=== PATIENT | female | born 1950 | race Caucasian/White ===

== ENCOUNTER 2021-07-31 11:15 | Outpatient (CLI) | payer MEDICARE ==
[2021-07-31 12:32] LABS: BASOPHILS # (AUTO) 0.1 X10'3 (0-0.2); BASOPHILS % (AUTO) 0.9 % (0-1); EOSINOPHILS # (AUTO) 0.3 X10'3 (0-0.9); EOSINOPHILS % (AUTO) 3.5 % (0-6); HEMATOCRIT 45.5 % (35.0-45.0); LYMPHOCYTES # (AUTO) 1.6 X10'3 (1.1-4.8); LYMPHOCYTES % (AUTO) 21.2 % (21-51); MEAN CORPUSCULAR HEMOGLOBIN 30.2 PG (27.0-31.0); MEAN CORPUSCULAR HGB CONC 33.1 g/dL (33.0-36.5); MEAN CORPUSCULAR VOLUME 91.2 FL (78-98); MEAN PLATELET VOLUME 7.5 FL (7.4-10.4); MONOCYTES # (AUTO) 0.8 X10'3 (0-0.9); MONOCYTES % (AUTO) 11.4 % (2-12); NEUTROPHILS # (AUTO) 4.7 X10'3 (1.8-7.7); PLATELET COUNT 232 X10'3 (140-440); RED BLOOD COUNT 4.98 X10'6 (4.20-5.60); WHITE BLOOD COUNT 7.5 X10'3 (4.5-11.0)
[2021-07-31 12:45] LABS: PARTIAL THROMBOPLASTIN TIME 29 SECONDS (22-32)
[2021-07-31 12:49] LABS: ALBUMIN 4.1 G/DL (3.4-5.0); ANION GAP 10 (8-16); BLOOD UREA NITROGEN 34 MG/DL (7-18); CALCIUM 9.6 MG/DL (8.5-10.1); CHLORIDE 106 MMOL/L (99-107); CREATININE 1.48 MG/DL (0.40-0.90); GLUCOSE 116 MG/DL (70-104); POTASSIUM 3.9 MMOL/L (3.5-5.1); SODIUM 142 MMOL/L (135-145); eGFR 35 ML/MIN
== END 2021-07-31 23:59 | disposition home or self-care (01) ==
LOC: LAB 11:15
PROVIDERS: ATTEND Internal Medicine Interventional Cardiology
DX: I10 Essential (primary) hypertension (principal); Z79.01 Long term (current) use of anticoagulants
CPT/HCPCS: 36415; 80048; 85025; 85610; 85730

== ENCOUNTER 2021-08-05 11:23 | Day surgery (SDC) | payer MEDICARE, BC ==
[~2021-08-05] VITALS: Ht 165.1 cm; Wt 79.7 kg
[2021-08-05] VITALS (8 sets, daily range): BP systolic 129–151; BP diastolic 70–82
[2021-08-05] MEDS ORDERED: TRIA1CAP6 PO (12:07)
[2021-08-05] MEDS ORDERED: SYN0.088T PO (12:07)
[2021-08-05] MEDS ORDERED: OMEG1CAP13 PO (12:07)
[2021-08-05] MEDS ORDERED: PRAV40TA3 PO (12:07)
[2021-08-05] MEDS ORDERED: SEMA1PEN SUBCUT (12:07)
[2021-08-05] MEDS ORDERED: CARV-50 PO (12:07)
[2021-08-05] MEDS ORDERED: ASPI-1265 PO (12:07)
[2021-08-05] MEDS ORDERED: UBID100C16 PO (12:07)
[2021-08-05] MEDS ORDERED: OLME5TAB3 PO (12:07)
[2021-08-05] MEDS ORDERED: LIDOcaine/PRILOcaine 5gm cream TP ONE (12:20)
[2021-08-05] MEDS ORDERED: normal saline 1,000 ML IV SCH (12:20)
[2021-08-05] MEDS ORDERED: LORazepam 0.5 MG tablet PO PRN (12:20)
[2021-08-05] MEDS ORDERED: diphenhydrAMINE 25mg capsule PO PRN (12:20)
[2021-08-05] MEDS ORDERED: midazolam 1 mg/ML 2ml injection ONE (12:40)
[2021-08-05] MEDS ORDERED: verapamil 2.5 mg/ml inj IV ONE (12:40)
[2021-08-05] MEDS ORDERED: fentaNYL/PF 50MCG/1 ML 2ML syringe ONE (12:40)
[2021-08-05] MEDS ORDERED: LIDOcaine 1% (10mg/ml)w/preservative injection 20ml MDV ONE (12:40)
[2021-08-05] MEDS ORDERED: nitroGLYCERIN-Tridil 50MG/D5W 250 ML IV ONE (12:40)
[2021-08-05] MEDS ORDERED: heparin 1,000unit/ml 10ml vial 10 ML ONE (12:40)
[2021-08-05] MEDS ORDERED: iohexol 350MG/ML 100ml bottle IV ONE ×2 (12:40→13:50)
[2021-08-05] MEDS ORDERED: ticagrelor 90mg tablet ONE (14:09)
[2021-08-05] MEDS ORDERED: HYDROcodone/acetaminophen 10/325mg tab PO PRN (14:50)
[2021-08-05] MEDS ORDERED: OXAZEpam 15mg capsule PO PRN (14:50)
[2021-08-05] MEDS ORDERED: proCHLORperazine 10 MG/2 ml inj IV PRN (14:50)
[2021-08-05] MEDS ORDERED: ondansetron/PF 4mg/2ml inj IV PRN (14:50)
[2021-08-05] MEDS ORDERED: HYDROcodone/acetaminophen 5mg/325mg tablet PO PRN (14:50)
== END 2021-08-05 17:50 | disposition home or self-care (01) ==
LOC: EDSEX → SSTAY O 11:23
PROVIDERS: ATTEND Internal Medicine Interventional Cardiology
DX: R94.39 Abnormal result of other cardiovascular function study (principal); R07.89 Other chest pain; I25.10 Atherosclerotic heart disease of native coronary artery without angina pectoris; E78.5 Hyperlipidemia, unspecified; E11.22 Type 2 diabetes mellitus with diabetic chronic kidney disease; I12.9 Hypertensive chronic kidney disease with stage 1 through stage 4 chronic kidney disease, or unspecified chronic kidney disease; N18.9 Chronic kidney disease, unspecified; Z79.899 Other long term (current) drug therapy; Z79.82 Long term (current) use of aspirin; Z88.8 Allergy status to other drugs, medicaments and biological substances; Z82.49 Family history of ischemic heart disease and other diseases of the circulatory system; Z83.3 Family history of diabetes mellitus
CPT/HCPCS: 82948; 93005; 93458; 99152; 99153; C1725; C1751; C1769; C1874; C1894; C9600; J1644; J2001; J2250; J3010; J7030; Q0163; Q9967; A4620; A5120; J3490

== ENCOUNTER 2023-04-15 10:53 | Day surgery (SDC) | payer MEDICARE, BC ==
[2023-04-08 15:02] LABS: ALBUMIN 3.7 G/DL (3.4-5.0); ALKALINE PHOSPHATASE 84 IU/L (46-116); BLOOD UREA NITROGEN 29 MG/DL (7-18); BUN/CREATININE RATIO 16.1 (10.0-20.0); CALCIUM 9.1 MG/DL (8.5-10.1); CHLORIDE 100 MMOL/L (99-107); PRE OP ALT 19 U/L (30-65); PRE OP ANION GAP 10 (8-16); PRE OP AST 16 U/L (10-37); PRE OP BILIRUB, TOTAL 0.5 MG/DL (0.0-1.0); PRE OP POTASSIUM 3.4 MMOL/L (3.4-5.1); PRE OP SODIUM 137 MMOL/L (135-145); TOTAL CARBON DIOXIDE 27.2 MMOL/L (24-32); TOTAL PROTEIN 7.3 G/DL (6.4-8.2); eGFR 28 ML/MIN
[2023-04-08 15:08] LABS: BASOPHILS # (AUTO) 0.1 X10'3 (0-0.2); BASOPHILS % (AUTO) 0.8 % (0-1); EOSINOPHILS # (AUTO) 0.3 X10'3 (0-0.9); EOSINOPHILS % (AUTO) 3.5 % (0-6); LYMPHOCYTES # (AUTO) 1.4 X10'3 (1.1-4.8); MEAN CORPUSCULAR HEMOGLOBIN 30.8 PG (27.0-31.0); MEAN CORPUSCULAR HGB CONC 33.8 g/dL (33.0-36.5); MEAN CORPUSCULAR VOLUME 91.1 FL (78-98); MEAN PLATELET VOLUME 7.3 FL (7.4-10.4); MONOCYTES # (AUTO) 0.6 X10'3 (0-0.9); MONOCYTES % (AUTO) 7.6 % (2-12); NEUTROPHILS # (AUTO) 5.2 X10'3 (1.8-7.7); NEUTROPHILS % (AUTO) 69.1 % (42-75); PRE OP HEMOGLOBIN 14.6 g/dL (12.0-16.0); PRE OP PLATELET COUNT 200 X10'3 (140-440); RED BLOOD COUNT 4.72 X10'6 (4.20-5.60); RED CELL DISTRIBUTION WIDTH 13.2 % (11.5-14.5)
[2023-04-08 15:10] LABS: PRE OP GLUCOSE 332 MG/DL (70-104)
[2023-04-08 15:30] LABS: HEMOGLOBIN A1C 8.8 % (4.5-6.2)
[~2023-04-15] VITALS: Ht 165.1 cm; Wt 84.2 kg
[2023-04-15] VITALS (8 sets, daily range): BP systolic 106–136; BP diastolic 50–76
[~2023-04-15 10:53] MED LIST: ASPI-1265 PO; CARV-50 PO; DOCUMENT DATE & TIME OF BETA-BLOCKER PO ONE; OLME5TAB32 PO; OMEG-5 PO; PRAV40TA3 PO; SEMA1PEN SUBCUT; SYN0.088T PO; TRIA1CAP88 PO; UBID100C16 PO; famotidine 20mg tablet PO ONE; normal saline 1000ml 500 ML IV SCH
[2023-04-15] MEDS ORDERED: propofol inj 20 ML IV ONE (12:49)
[2023-04-15] MEDS ORDERED: LIDOcaine 2% (20mg/ml) 5ml vial ONE (12:49)
[2023-04-15] MEDS ORDERED: desflurane 240ml liquid inh. IH ONE (13:15)
[2023-04-15] MEDS ORDERED: ondansetron/PF 4mg/2ml inj ONE (13:25)
[2023-04-15] MEDS ORDERED: dexamethasone sod phosphate 4mg/ml inj. ONE (13:25)
[2023-04-15] MEDS ORDERED: ringers solution, lacted 1,000 ML IV SCH (13:40)
[2023-04-15] MEDS ORDERED: hydrALAZINE 20mg/ml inj. IV PRN (13:40)
[2023-04-15] MEDS ORDERED: ondansetron/PF 4mg/2ml inj IV PRN (13:40)
[2023-04-15] MEDS ORDERED: fentaNYL/PF 50MCG/1 ML 2ML syringe IV PRN ×2 (13:40)
[2023-04-15] MEDS ORDERED: morphine 4 MG/ML inj SYRINge IV PRN (13:40)
[2023-04-15] MEDS ORDERED: labetalol 20mg/4ml (5mg/ml) syringe IV PRN (13:40)
[2023-04-15] MEDS ORDERED: morphine 2 MG/ML inj. syringe IV PRN (13:40)
--- NOTE | 2023-04-15 14:03 | NUR ---
Received from OR via [facility] IN STABLE CONDITION , accompanied by Anesthesiologist and FASHION INTERN report given by FASHION INTERN AND Anesthesiolgist. Addendum: 04/15/23 at 1425 by Kim Tatum RN Amended: Links added.
[2023-04-15] MEDS ORDERED: oxyCODONE/APAP 5-325mg tablet PO ONE (14:05)
--- NOTE | 2023-04-15 15:13 | NUR ---
PATIENT DISCHARGED FROM PACU IN STABLE CONDITION AFTER PATIENT GIVEN WRITTEN AND VERBAL DISCHARGE INSTRUCTIONS. PATIENT GAVE VERBAL UNDERSTANDING OF INSTRUCTIONS GIVEN. PATIENT LEFT FACILITY VIA WHEELCHAIR WITH RN. Addendum: 04/15/23 at 1515 by Kim Tatum RN Amended: Links added.
== END 2023-04-15 15:13 | disposition home or self-care (01) ==
LOC: PAS 10:53
PROVIDERS: ATTEND Obstetrics & Gynecology
DX: N95.0 Postmenopausal bleeding (principal); N84.0 Polyp of corpus uteri; K21.9 Gastro-esophageal reflux disease without esophagitis; E78.00 Pure hypercholesterolemia, unspecified; E11.22 Type 2 diabetes mellitus with diabetic chronic kidney disease; I12.9 Hypertensive chronic kidney disease with stage 1 through stage 4 chronic kidney disease, or unspecified chronic kidney disease; N18.30 Chronic kidney disease, stage 3 unspecified; I25.10 Atherosclerotic heart disease of native coronary artery without angina pectoris; Z95.5 Presence of coronary angioplasty implant and graft; Z88.8 Allergy status to other drugs, medicaments and biological substances; Z79.899 Other long term (current) drug therapy; Z79.82 Long term (current) use of aspirin; Z96.641 Presence of right artificial hip joint; Z98.890 Other specified postprocedural states; Z83.3 Family history of diabetes mellitus; Z82.49 Family history of ischemic heart disease and other diseases of the circulatory system; Z81.8 Family history of other mental and behavioral disorders; Z80.1 Family history of malignant neoplasm of trachea, bronchus and lung
CPT/HCPCS: 36415; 58558; 80053; 82948; 83036; 85025; J1100; J2405; J2704; J3490; J7030; J7120; Z7506; Z7512; A4355; A4618; A6258